=== PATIENT | male | born 1950 | race Caucasian/White ===

== ENCOUNTER 2019-10-23 08:19 | Observation (INO) ==
[2019-10-23] MEDS ORDERED: SODIUM CHLORIDE 0.9% 1,000 ML IV STA ×2 (08:47→13:34)
[2019-10-23 09:32] LABS: Basophils # 0.1 10*3/uL (0.0-0.2); Basophils % 0.5 % (0.0-0.8); Eosinophils # 0.1 10*3/uL (0.0-0.87); Eosinophils % 0.5 % (0.00-10.9); Hematocrit 50.7 VOL% (42.0-52.0); Hemoglobin 16.7 GM/DL (14.0-18.0); Immature Granulocytes % 0.5 %; Immature Granulocytes Absolute 0.05 #; Lymphocytes # 1.2 10*3/uL (1.4-4.0); Lymphocytes % 10.6 % (21.2-54.2); Mean Corpuscular HGB Conc 32.9 GM/DL (32-36); Mean Corpuscular Volume 89.9 FL (87-102); Mean Platelet Volume 10.8 FL (9.6-12.0); Monocytes % 5.9 % (1.7-12.7); Platelet Count 159 T/CUMM (130-400); Red Blood Count 5.64 MC/CUMM (3.8-5.5); Red Cell Distribution Width 14.6 % (9.3-17.3); White Blood Count 10.9 T/CUMM (4-12)
[2019-10-23 10:00] LABS: PT Patient Result 11.1 SECS (9.8-11.9)
[2019-10-23 10:00] LABS: ABG Base Excess 4.8 MMOL/L (-2.5-2.5); ABG HCO3 28.3 MMOL/L (20-26); ABG Oxygen Saturation 82.1 % (95-100); ABG PH 7.402 (7.35-7.45); ABG PO2 49.1 MM HG (80-95); ABG TCO2 26.1 MMOL/L (23-27); Allen Test Positive; Pt O2 Delivery Device Room Air
[2019-10-23 10:09] LABS: Albumin 3.7 G/DL (3.4-5.0); Bilirubin,Total 1.3 MG/DL (0.2-1.0); Calcium 8.9 MG/DL (8.5-10.1); Ferritin 261.9 ng/ml (26-388); Osmolality,Calculated 279.5 MOS/KG (273-304); Total Protein 7.2 G/DL (6.4-8.3)
[2019-10-23] MEDS ORDERED: POTASSIUM CHLORIDE 20 MEQ TABLET PO STA (10:13)
[2019-10-23] MEDS ORDERED: ONDANSETRON 4 MG/2 ML VIAL IV PRN (10:55)
[2019-10-23] MEDS ORDERED: ZALEPLON 5 MG CAPSULE PO PRN (10:55)
[2019-10-23] MEDS ORDERED: GLUCAGON 1 MG VIAL IM PRN (10:55)
[2019-10-23] MEDS ORDERED: DEXTROSE 10% 250 ML BAG IV PRN (10:55)
[2019-10-23] MEDS ORDERED: ACETAMINOPHEN 325 MG TABLET PO PRN (10:55)
[2019-10-23] MEDS ORDERED: MECLIZINE 25 MG TABLET PO SCH (11:30)
[2019-10-23 12:26] LABS: Apearance,Urine Slightly Hazy (Clear); Bilirubin,Urine Negative (Negative); Blood, Urine Negative (Negative); Glucose,Urine (UA) Negative (Negative); Hyaline Casts,Urine 4 /LPF (0-3); Ketones,Urine Negative (Negative); Mucus,Urine Many /LPF (Occasional); Nitrite,Urine Negative (Negative); Protein,Urine 100 MG/DL; RBC,Urine 3 /HPF (0-4); Squamous Epithelial Cell,Urine Occasional /HPF (0-10); Urine Color Amber (Yellow); Urine Specific Gravity 1.025 (1.001-1.035); Urine Urobilinogen < 2.0 EU/DL (0.2-1.0); WBC,Urine 1 /HPF (0-6)
[2019-10-23 12:29] LABS: Barbiturates Screen,Urine Negative (Negative); Benzodiazepines Screen,Urine Negative (Negative); Cannabinoid Screen,Urine Negative (Negative); Opiate Screen,Urine Negative (Negative); Phencyclidine Screen,Urine Negative (Negative)
[2019-10-23] MEDS ORDERED: ENOXAPARIN 40 MG/0.4 ML SYRINGE SUBCUT SCH (12:30)
[2019-10-23 12:51] LABS: Troponin I 0.083 NG/ML (0.00-0.045)
[2019-10-23] MEDS ORDERED: ENOXAPARIN 120 MG/0.8 ML SYRINGE SUBCUT STA (13:50)
[2019-10-23] MEDS: SODIUM CHLORIDE 0.45% 1,000 ML IV SCH ×2 (14:57→23:00)
[2019-10-23] MEDS: PANTOPRAZOLE 40 MG TABLET PO SCH (14:58)
[2019-10-23] MEDS: RIVAROXABAN 15 MG TABLET PO SCH (17:02)
[2019-10-23] MEDS: cefTRIAXone 1,000 MG in SYRINGE 1 EACH IV SCH (17:02)
[2019-10-23 18:34] LABS: Basophils # 0.1 10*3/uL (0.0-0.2); Basophils % 0.4 % (0.0-0.8); Eosinophils # 0.1 10*3/uL (0.0-0.87); Eosinophils % 0.4 % (0.00-10.9); Hemoglobin 17.1 GM/DL (14.0-18.0); Immature Granulocytes % 0.5 %; Immature Granulocytes Absolute 0.08 #; Lymphocytes # 4.8 10*3/uL (1.4-4.0); Lymphocytes % 30.1 % (21.2-54.2); Mean Corpuscular HGB Conc 33.5 GM/DL (32-36); Mean Corpuscular Volume 87.9 FL (87-102); Mean Platelet Volume 11.4 FL (9.6-12.0); Monocytes % 7.3 % (1.7-12.7); NRBC # 0.02 10*3/uL; Neutrophils % 61.3 % (38.7-73.9); Red Cell Distribution Width 15.4 % (9.3-17.3); White Blood Count 15.9 T/CUMM (4-12)
[2019-10-23 18:35] LABS: Platelet Count 221 T/CUMM (130-400)
[2019-10-23 18:41] LABS: ABG Oxygen Saturation 92.7 % (95-100); ABG PCO2 47.1 MM HG (35-48); ABG PH 7.382 (7.35-7.45); ABG PO2 69.6 MM HG (80-95); ABG TCO2 23.3 MMOL/L (23-27)
[2019-10-23 18:44] LABS: Albumin 3.7 G/DL (3.4-5.0); Bilirubin,Total 1.5 MG/DL (0.2-1.0); Calcium 8.8 MG/DL (8.5-10.1); Osmolality,Calculated 277.8 MOS/KG (273-304); Total Protein 7.4 G/DL (6.4-8.3)
[2019-10-23] MEDS: DOXYCYCLINE HYCLATE 100 MG CAPSULE PO SCH (22:54)
[2019-10-23] MEDS: RANOLAZINE 500 MG TABLET PO SCH (22:54)
[2019-10-24] MEDS: SODIUM CHLORIDE 0.45% 1,000 ML IV SCH ×3 (00:53→22:20)
[2019-10-24 05:45] LABS: Basophils % 0.5 % (0.0-0.8); Eosinophils # 0.1 10*3/uL (0.0-0.87); Eosinophils % 0.6 % (0.00-10.9); Hematocrit 44.3 VOL% (42.0-52.0); Hemoglobin 14.7 GM/DL (14.0-18.0); Immature Granulocytes % 0.6 %; Immature Granulocytes Absolute 0.05 #; Lymphocytes # 1.8 10*3/uL (1.4-4.0); Lymphocytes % 19.9 % (21.2-54.2); Mean Corpuscular HGB Conc 33.2 GM/DL (32-36); Mean Corpuscular Volume 88.2 FL (87-102); Mean Platelet Volume 11.7 FL (9.6-12.0); Monocytes % 7.3 % (1.7-12.7); Neutrophils % 71.1 % (38.7-73.9); Platelet Count 148 T/CUMM (130-400); Red Blood Count 5.02 MC/CUMM (3.8-5.5); Red Cell Distribution Width 14.7 % (9.3-17.3); White Blood Count 8.9 T/CUMM (4-12)
[2019-10-24 06:13] LABS: Calcium 8.3 MG/DL (8.5-10.1); Osmolality,Calculated 281.4 MOS/KG (273-304); Risk Ratio 3.3; VLDL CHOLESTEROL 33.8 MG/DL
[2019-10-24 06:23] LABS: Calcium 8.4 MG/DL (8.5-10.1); Osmolality,Calculated 280.5 MOS/KG (273-304)
[2019-10-24] MEDS: ASPIRIN EC 81 MG TABLET PO SCH (09:23)
[2019-10-24] MEDS: POTASSIUM CHLORIDE 20 MEQ TABLET PO PRN ×4 (09:23→17:34)
[2019-10-24] MEDS: RIVAROXABAN 15 MG TABLET PO SCH ×2 (09:23→17:34)
[2019-10-24] MEDS: amLODIPine 10 MG TABLET PO SCH (09:23)
[2019-10-24] MEDS: ATORVASTATIN 10 MG TABLET PO SCH (09:23)
[2019-10-24] MEDS: RANOLAZINE 500 MG TABLET PO SCH ×2 (09:23→22:20)
[2019-10-24] MEDS: PANTOPRAZOLE 40 MG TABLET PO SCH (09:23)
[2019-10-24] MEDS: DOXYCYCLINE HYCLATE 100 MG CAPSULE PO SCH ×2 (11:22→22:20)
[2019-10-24] MEDS: BISOPROLOL/HCTZ 10-6.25 MG TABLET PO SCH (11:22)
[2019-10-24] MEDS: cefTRIAXone 1,000 MG in SYRINGE 1 EACH IV SCH (17:35)
[2019-10-25 08:26] LABS: Basophils % 0.4 % (0.0-0.8); Eosinophils # 0.2 10*3/uL (0.0-0.87); Eosinophils % 2.2 % (0.00-10.9); Hematocrit 43.8 VOL% (42.0-52.0); Immature Granulocytes % 0.3 %; Immature Granulocytes Absolute 0.02 #; Lymphocytes # 1.3 10*3/uL (1.4-4.0); Lymphocytes % 17.9 % (21.2-54.2); Mean Corpuscular Volume 91.4 FL (87-102); Mean Platelet Volume 11.3 FL (9.6-12.0); Monocytes % 6.5 % (1.7-12.7); Neutrophils % 72.7 % (38.7-73.9); Red Blood Count 4.79 MC/CUMM (3.8-5.5); Red Cell Distribution Width 14.7 % (9.3-17.3); White Blood Count 7.4 T/CUMM (4-12)
[2019-10-25 08:28] LABS: Platelet Count 117 T/CUMM (130-400)
[2019-10-25 08:31] LABS: Calcium 8.2 MG/DL (8.5-10.1); Osmolality,Calculated 279.4 MOS/KG (273-304)
[2019-10-25] MEDS: BISOPROLOL/HCTZ 10-6.25 MG TABLET PO SCH (08:49)
[2019-10-25] MEDS: ASPIRIN EC 81 MG TABLET PO SCH (08:49)
[2019-10-25] MEDS: PANTOPRAZOLE 40 MG TABLET PO SCH (08:49)
[2019-10-25] MEDS: RIVAROXABAN 15 MG TABLET PO SCH ×2 (08:49→16:04)
[2019-10-25] MEDS: DOXYCYCLINE HYCLATE 100 MG CAPSULE PO SCH ×2 (08:49→22:18)
[2019-10-25] MEDS: POTASSIUM CHLORIDE 20 MEQ TABLET PO PRN (08:49)
[2019-10-25] MEDS: RANOLAZINE 500 MG TABLET PO SCH ×2 (08:49→22:18)
[2019-10-25] MEDS: amLODIPine 10 MG TABLET PO SCH (08:49)
[2019-10-25] MEDS: ATORVASTATIN 10 MG TABLET PO SCH (08:49)
[2019-10-25] MEDS: cefTRIAXone 1,000 MG in SYRINGE 1 EACH IV SCH (16:04)
[2019-10-26] MEDS: amLODIPine 10 MG TABLET PO SCH (08:57)
[2019-10-26] MEDS: RIVAROXABAN 15 MG TABLET PO SCH (08:57)
[2019-10-26] MEDS: DOXYCYCLINE HYCLATE 100 MG CAPSULE PO SCH (08:57)
[2019-10-26] MEDS: BISOPROLOL/HCTZ 10-6.25 MG TABLET PO SCH (08:57)
[2019-10-26] MEDS: ASPIRIN EC 81 MG TABLET PO SCH (08:57)
[2019-10-26] MEDS: PANTOPRAZOLE 40 MG TABLET PO SCH (08:57)
[2019-10-26] MEDS: RANOLAZINE 500 MG TABLET PO SCH (08:57)
[2019-10-26] MEDS: ATORVASTATIN 10 MG TABLET PO SCH (08:57)
[2019-10-26 12:05] VITALS: BP 142/71
[2019-11-14] MEDS ORDERED: RIVAROXABAN 20 MG TABLET PO SCH (17:00)
== END 2019-10-26 13:28 | disposition home or self-care (01) ==
LOC: EDUNIT# → EDBD → N.ED 08:19 → N.EDINP 08:19 → N.TELEN 12:44 → N.2E 13:22 → N.TELES 14:17
PROVIDERS: ADMIT Family Medicine; ATTEND Family Medicine

== ENCOUNTER 2021-08-10 18:35 | Inpatient (IN) ==
[2021-08-11] MEDS ORDERED: ASPIRIN 325 MG TABLET PO STA (06:12)
[2021-08-11 06:38] LABS: INR 1.1; PT Patient Result 11.8 SECS (10.5-12.0); Partial Thromboplastin Time 26.1 SECS (23.8-32.1)
[2021-08-11 06:41] LABS: Basophils # 0.1 10*3/uL (0.0-0.2); Basophils % 0.4 % (0.0-0.8); Eosinophils % 0.3 % (0.00-10.9); Hemoglobin 17.2 GM/DL (14.0-18.0); Immature Granulocytes % 0.5 %; Immature Granulocytes Absolute 0.06 #; Lymphocytes # 1.9 10*3/uL (1.4-4.0); Lymphocytes % 16.7 % (21.2-54.2); Mean Corpuscular HGB Conc 34.4 GM/DL (32-36); Mean Platelet Volume 12.6 FL (9.6-12.0); Monocytes % 5.8 % (1.7-12.7); Neutrophils % 76.3 % (38.7-73.9); Platelet Count 148 T/CUMM (130-400); Red Blood Count 5.75 MC/CUMM (3.8-5.5); Red Cell Distribution Width 14.7 % (9.3-17.3); White Blood Count 11.3 T/CUMM (4-12)
[2021-08-11 09:41] LABS: Albumin 3.5 G/DL (3.4-5.0); Bilirubin,Total 1.4 MG/DL (0.20-1.00); Calcium 9.3 MG/DL (8.5-10.1); Osmolality,Calculated 277.5 MOS/KG (273-304); Potassium 4.3 MMOL/L (3.5-5.1)
[2021-08-11] MEDS ORDERED: HEPARIN DRIP 25,000 UNITS/500 ML PREMIX IV SCH (11:30)
[2021-08-11] MEDS ORDERED: GLUCAGON 1 MG VIAL IM PRN (12:49)
[2021-08-11] MEDS ORDERED: ONDANSETRON 4 MG/2 ML VIAL IV PRN (12:49)
[2021-08-11] MEDS ORDERED: DEXTROSE 10% 250 ML BAG IV PRN (12:49)
[2021-08-11] MEDS ORDERED: SODIUM CHLORIDE 0.9% 1,000 ML IV SCH (13:00)
[2021-08-11] MEDS ORDERED: DIAZEPAM 5 MG TABLET PO ONE (13:21)
[2021-08-11] MEDS ORDERED: diphenhydrAMINE CAP 25 MG CAPSULE PO ONE (13:21)
[2021-08-11] MEDS ORDERED: fentaNYL 100 MCG/2 ML VIAL ONE (13:45)
[2021-08-11] MEDS ORDERED: MIDAZOLAM 2 MG/2 ML VIAL ONE (13:45)
[2021-08-11] MEDS ORDERED: LIDOCAINE 1% 20 ML VIAL ONE (13:53)
[2021-08-11] MEDS ORDERED: HEPARIN/NACL 0.9% 2 UNITS/ML 2,000 UNIT/1,000 ML BAG IV ONE (13:53)
[2021-08-11] MEDS ORDERED: HEPARIN 5,000 UNIT/1 ML VIAL ONE (14:00)
[2021-08-11] MEDS ORDERED: RIVAROXABAN 15 MG TABLET PO STA (14:45)
[2021-08-11] MEDS ORDERED: WARFARIN 10 MG TABLET PO SCH (18:00)
[2021-08-11] MEDS: RANOLAZINE 500 MG TABLET PO SCH (20:48)
[2021-08-11] MEDS ORDERED: ATORVASTATIN 10 MG TABLET PO SCH (21:00)
[2021-08-12 06:48] LABS: Basophils % 0.3 % (0.0-0.8); Eosinophils # 0.1 10*3/uL (0.0-0.87); Eosinophils % 0.8 % (0.00-10.9); Hematocrit 41.8 VOL% (42.0-52.0); Immature Granulocytes % 0.4 %; Immature Granulocytes Absolute 0.04 #; Lymphocytes # 1.7 10*3/uL (1.4-4.0); Lymphocytes % 19.3 % (21.2-54.2); Mean Corpuscular HGB Conc 33.5 GM/DL (32-36); Mean Corpuscular Volume 88.2 FL (87-102); Mean Platelet Volume 10.7 FL (9.6-12.0); Monocytes % 6.2 % (1.7-12.7); Platelet Count 141 T/CUMM (130-400); Red Blood Count 4.74 MC/CUMM (3.8-5.5); Red Cell Distribution Width 14.1 % (9.3-17.3); White Blood Count 8.9 T/CUMM (4-12)
[2021-08-12 06:56] LABS: INR 1.3; PT Patient Result 14.2 SECS (10.5-12.0)
[2021-08-12 07:15] LABS: Calcium 8.1 MG/DL (8.5-10.1); Osmolality,Calculated 281.4 MOS/KG (273-304); Potassium 3.1 MMOL/L (3.5-5.1); Risk Ratio 3.42; Thyroid Stimulating Hormone 2.42 uIU/ml (0.358-3.74); VLDL Cholesterol 30.6 MG/DL
[2021-08-12] MEDS ORDERED: POTASSIUM CHLORIDE 20 MEQ TABLET PO ONE (07:24)
[2021-08-12] MEDS ORDERED: RIVAROXABAN 15 MG TABLET PO SCH (08:00)
[2021-08-12] MEDS: RANOLAZINE 500 MG TABLET PO SCH (08:46)
[2021-08-12] MEDS ORDERED: amLODIPine 10 MG TABLET PO SCH (09:00)
[2021-08-12] MEDS ORDERED: BISOPROLOL 5 MG TABLET PO SCH (09:00)
[2021-08-12] MEDS ORDERED: hydroCHLOROthiazide 25 MG TABLET PO SCH (09:00)
[2021-08-12] MEDS ORDERED: ASPIRIN EC 81 MG TABLET PO SCH (09:00)
[2021-08-12 13:48] VITALS: BP 142/68
== END 2021-08-12 14:14 | disposition home or self-care (01) | DRG 164 ==
LOC: EDUNIT# → EDBD → N.ED 18:35 → SUATTDRO 08-11 12:11 → N.EDINP 08-11 12:11 → N.TELES 08-11 13:33
PROVIDERS: ADMIT Internal Medicine; ATTEND Emergency Medicine